=== PATIENT | female | born 1950 | race Caucasian/White ===

== ENCOUNTER → 2018-01-10 | Day surgery (SDC) | payer OTHER, MEDICARE ==
[~2018-01-10] VITALS: Ht 170.2 cm; Wt 77.1 kg
[~2018-01-10] MED LIST: ASPIRIN EC81 M1 PO; CO Q-10150 MG PO; COZAAR100 M1 PO; DAILY VALUE1 EACH PO; FISH OIL 1,0001 EAC4 PO; LEVOXYL75 MCG PO; MAGNESIUM400 M1 PO; VITAMIN B-121000 MC3 PO
--- NOTE | 2018-01-10 07:59 | Operative Report ---
Operative/Inv Procedure Report Surgery Date: 01/10/18 Name of Procedure: Cataract extraction with intraocular lens implantation left eye Pre-Operative Diagnosis: Age-related cataract left eye Post-Operative Diagnosis: Same Estimated Blood Loss: none Surgeon/Metal Riveter: Alex Walker MD Anesthesia: local monitored anesthesi Complications: None Operative/Procedure Note Note: Preoperatively the patient was noted to have 20/50 vision in the left eye . The risks, benefits, and alternatives to surgery were discussed at length with the patient. Informed consent was obtained. The patient was brought to the operating room where the left eye was prepped and draped in the normal sterile fashion. A speculum was placed on the left eye with good exposure. The axis of the limbal relaxing incision was marked. Using a nikita blade at 600 depth, an incision spanning 45 degrees was made without complication. A limbal relaxing incision of equal length and depth was made 180 away.A stab incision was made using a paracentesis blade. Intracameral lidocaine was placed. Viscoelastic was used to form the anterior chamber. A clear corneal incision was made using keratome blade. A continuous curvilinear capsulorrhexis was made using a cystotome needle followed by Utrata forceps. There was no extension of the rhexis. Hydrodissection was performed using balanced salt solution. The cataract was removed using a stop and chop technique. Residual cortex was removed using coaxial irrigation and aspiration. The capsule was polished using irrigation and aspiration and the posterior capsule was cleaned using a balanced salt solution jet. There was no residual lens material inside the eye. The capsular bag was reformed using viscoelastic. An intraocular lens PCBOO of power 16.0 was verified and confirmed. It was loaded into an injector and injected into the eye. The lens was placed entirely within the capsular bag. Viscoelastic was evacuated using irrigation and aspiration. The wounds were stromally hydrated and the eye filled to physiologic pressure using balanced salt solution. Intracameral cefuroxime was placed. Speculum was removed and a shield was placed on the eye. The patient was brought to the recovery area without incident. Instructions were given to follow-up the next day for routine postoperative care.
== END ==
LOC: STS 02:14
DX: H25.9 Unspecified age-related cataract (principal); E11.9 Type 2 diabetes mellitus without complications; I10 Essential (primary) hypertension; E07.9 Disorder of thyroid, unspecified
CPT/HCPCS: J2250; V2632

== ENCOUNTER → 2018-02-07 | Day surgery (SDC) | payer OTHER, MEDICARE ==
[~2018-02-07] VITALS: Ht 170.2 cm; Wt 77.1 kg
--- NOTE | 2018-02-07 10:22 | Operative Report ---
Operative/Inv Procedure Report Surgery Date: 02/07/18 Name of Procedure: Cataract extraction with intraocular lens implantation right eye Pre-Operative Diagnosis: Age-related cataract right eye Post-Operative Diagnosis: Same Estimated Blood Loss: none Surgeon/Director Oncology: Aaron STACK,Alex Castillo Anesthesia: local monitored anesthesi Complications: None Operative/Procedure Note Note: Preoperatively the patient was noted to have 20/30 vision in the right eye with a decrease with glare testing down to 20/50. The risks, benefits, and alternatives to surgery were discussed at length with the patient. Informed consent was obtained. The patient was brought to the operating room where the right eye was prepped and draped in the normal sterile fashion. A speculum was placed on the right eye with good exposure. The axis of the limbal relaxing incision was marked. Using a nikita blade at 600 depth, an incision spanning 35 degrees was made without complication. A limbal relaxing incision of equal length and depth was made 180 away. A stab incision was made using a paracentesis blade. Intracameral lidocaine was placed. Viscoelastic was used to form the anterior chamber. A clear corneal incision was made using keratome blade. A continuous curvilinear capsulorrhexis was made using a cystotome needle followed by Utrata forceps. There was no extension of the rhexis. Hydrodissection was performed using balanced salt solution. The cataract was removed using a stop and chop technique. Residual cortex was removed using coaxial irrigation and aspiration. The capsule was polished using irrigation and aspiration and the posterior capsule was cleaned using a balanced salt solution jet. There was no residual lens material inside the eye. The capsular bag was reformed using viscoelastic. An intraocular lens PCBOO of power 15.5 was verified and confirmed. It was loaded into an injector and injected into the eye. The lens was placed entirely within the capsular bag. Viscoelastic was evacuated using irrigation and aspiration. The wounds were stromally hydrated and the eye filled to physiologic pressure using balanced salt solution. Intracameral cefuroxime was placed. Speculum was removed and a shield was placed on the eye. The patient was brought to the recovery area without incident. Instructions were given to follow-up the next day for routine postoperative care.
== END ==
LOC: STS 04:23
DX: H25.9 Unspecified age-related cataract (principal); E11.9 Type 2 diabetes mellitus without complications; I10 Essential (primary) hypertension; E07.9 Disorder of thyroid, unspecified; M19.90 Unspecified osteoarthritis, unspecified site; Z79.82 Long term (current) use of aspirin
CPT/HCPCS: J2250; V2632